=== PATIENT | male | born 1950 | race Caucasian/White ===

== ENCOUNTER 2018-08-06 09:52 | Emergency (ER) | payer SELFPAY ==
[~2018-08-06] VITALS: Ht 188 cm; Wt 105.9 kg
[~2018-08-06 09:52] MED LIST: ATENOLOL50 MG PO; COUMADIN5 MG PO; IBUPROFEN200 M2 PO; JANUMET 1000 MG1 TAB PO; LEVEMIR100 U/ML SQ; LIPITOR 10MG10 MG PO; PRINIVIL5 MG PO; ST. JOSEPH81 M2 PO; ZOLOFT50 MG PO
[2018-08-06 09:54] VITALS: TEMP 98.5
[2018-08-06] MEDS ORDERED: DOXYCYCLINE HY100 MG PO (10:24)
[2018-08-06 11:13] VITALS: BP 121/75; PULSE 70
== END 2018-08-06 11:13 | disposition home or self-care (01) ==
LOC: COL.ER 09:52
DX: T24.201A Burn of second degree of unspecified site of right lower limb, except ankle and foot, initial encounter (principal); L03.115 Cellulitis of right lower limb; I48.91 Unspecified atrial fibrillation; I10 Essential (primary) hypertension; E11.9 Type 2 diabetes mellitus without complications; E78.5 Hyperlipidemia, unspecified; F32.9 Major depressive disorder, single episode, unspecified; G47.33 Obstructive sleep apnea (adult) (pediatric); Z79.4 Long term (current) use of insulin; Z79.82 Long term (current) use of aspirin; Z79.01 Long term (current) use of anticoagulants; Z87.891 Personal history of nicotine dependence; X16.XXXA Contact with hot heating appliances, radiators and pipes, initial encounter; Y99.0 Civilian activity done for income or pay

== ENCOUNTER 2018-09-05 09:02 | Outpatient (RCR) | payer OTHER ==
[~2018-09-05 09:02] MED LIST changes: +DOXYCYCLINE HY100 MG PO
== END 2018-10-23 15:36 | disposition home or self-care (01) ==
LOC: WSOH 09:02
DX: T24.231A Burn of second degree of right lower leg, initial encounter (principal); L03.115 Cellulitis of right lower limb; X16.XXXA Contact with hot heating appliances, radiators and pipes, initial encounter; Y93.89 Activity, other specified; Y92.214 College as the place of occurrence of the external cause; Y99.0 Civilian activity done for income or pay; F41.9 Anxiety disorder, unspecified; E11.9 Type 2 diabetes mellitus without complications; Z79.4 Long term (current) use of insulin; I48.91 Unspecified atrial fibrillation; G47.9 Sleep disorder, unspecified; Z88.0 Allergy status to penicillin

== ENCOUNTER → 2020-05-05 | Outpatient (CLI) | payer MEDICARE, OTHER | LOC: COL.RAD 10:12 | DX: K80.20 Calculus of gallbladder without cholecystitis without obstruction (principal); K76.0 Fatty (change of) liver, not elsewhere classified ==

== ENCOUNTER 2021-07-08 05:45 | Emergency (ER) | payer MEDICARE, OTHER ==
[~2021-07-08] VITALS: Ht 188 cm; Wt 113.6 kg
[2021-07-08 05:50] VITALS: TEMP 98.5
[2021-07-08 06:16] LABS: BASO % 0.2 % (0.0-2.0); EOS # 0.1 K/mm3 (0.0-0.7); EOS % 1.4 % (0.0-4.0); GRAN # 2.7 K/mm3 (1.4-6.5); GRAN % 54.9 % (42.2-75.2); HEMATOCRIT 41.2 % (42.0-52.0); HEMOGLOBIN 14.1 g/dl (13.5-18.0); LYMPH # 1.5 K/mm3 (1.2-3.4); LYMPH % 29.5 % (20.0-51.0); MEAN CELL VOLUME 85 fl (80.0-100.0); MEAN CORPUSCULAR HEMOGLOBIN 29 pg (27-31); MEAN CORPUSCULAR HGB CONC 34 g/dl (33.0-37.0); MEAN PLATELET VOLUME 10.9 fl (7.4-10.4); MONO # 0.7 K/mm3 (0.1-0.6); MONO % 13.2 % (1.7-9.3); PLATELET COUNT 84 K/mm3 (130-400); RED BLOOD COUNT 4.86 M/mm3 (4.20-5.60); REDCELL DISTRIBUTION WIDTH-CV 14.2 % (11.5-14.5)
[2021-07-08 06:37] LABS: ALANINE AMINOTRANSFERASE 25 U/L (0-55); ALBUMIN 3.9 gm/dL (3.4-4.8); ALKALINE PHOSPHATASE 69 U/L (40-150); ANION GAP 11 mmol/L (7-16); AST,SGOT 31 U/L (5-34); BILIRUBIN,TOTAL 1.7 mg/dL (0.2-1.2); BLOOD UREA NITROGEN 23 mg/dL (8-26); CARBON DIOXIDE 22 mmol/L (23-31); CHLORIDE 102 mmol/L (98-107); CREATININE, serum 1.27 mg/dL (0.72-1.25); GLUCOSE 357 mg/dL (70-99); POTASSIUM 4.3 mmol/L (3.5-4.5); SODIUM 135 mmol/L (136-145); TOTAL PROTEIN 7.4 gm/dL (6.2-8.1)
[2021-07-08 06:46] LABS: TROPONIN-I < 0.010 ng/mL (0.00-0.033)
[2021-07-08] MEDS ORDERED: NORCO 325 MG-51 TAB PO (07:39)
[2021-07-08 07:48] VITALS: BP 150/86; PULSE 63
== END 2021-07-08 07:58 | disposition home or self-care (01) ==
LOC: COL.ER 05:45
PROVIDERS: Personal Emergency Response Attendant
DX: U07.1 COVID-19 (principal); I48.91 Unspecified atrial fibrillation; E11.9 Type 2 diabetes mellitus without complications; E78.5 Hyperlipidemia, unspecified; Z79.01 Long term (current) use of anticoagulants; Z79.82 Long term (current) use of aspirin; Z79.4 Long term (current) use of insulin; Z79.84 Long term (current) use of oral hypoglycemic drugs; Z79.899 Other long term (current) drug therapy
CPT/HCPCS: J3010

== ENCOUNTER 2021-10-18 19:44 | Emergency (ER) | payer MEDICARE, OTHER ==
[~2021-10-18] VITALS: Ht 188 cm; Wt 104.5 kg
[~2021-10-18 19:44] MED LIST changes: +NORCO 325 MG-51 TAB PO
[2021-10-18 20:10] VITALS: TEMP 98.1
[2021-10-18] MEDS ORDERED: CRUTCHES MC (20:43)
[2021-10-18] MEDS ORDERED: PERCOCET 325 MG1 TA2 PO (20:43)
[2021-10-18 22:02] VITALS: BP 146/76; PULSE 81
== END 2021-10-18 22:05 | disposition home or self-care (01) ==
LOC: COL.ER 19:44
DX: S83.92XA Sprain of unspecified site of left knee, initial encounter (principal); Z28.310 Unvaccinated for COVID-19; W18.39XA Other fall on same level, initial encounter; Y93.53 Activity, golf